=== PATIENT | male | born 1960 | race Asian ===

== ENCOUNTER 2017-10-30 07:17 | Outpatient (CLI) | payer BC ==
--- NOTE | 2017-10-30 09:09 | ULT ---
ULTRASOUND ABDOMEN COMPLETE HISTORY: Right upper quadrant pain. TECHNIQUE: Dejesus-scale ultrasound evaluation of the liver, gallbladder, spleen, pancreas, common bile duct, kidne ys, abdominal aorta, and inferior vena cava (IVC). FINDINGS: Within the hepatic parenchyma, there is a complex focus of predominantly decreased echogenicity with a component of peripherally located irregular increased echogenicity. There is through transmission of sound. No significant, internal flow is demonstrated. The finding measures slightly greater than 2 cm in diameter, as demonstrated. There is no acute gallbladder pathology. No hydronephrosis of the kidneys. Portions of the pancreas are obscured from view limiting assessment. No acute splenic pathology. No ascites or additional s ignificant intraabdominal pathology. IMPRESSION: Findings suggestive of a complex hepatic cyst. Followup pre- and post-contrast CT of abdomen utilizi ng hemangioma protocol is recommended to further characterize. CODE T POS: JOHN
== END 2017-10-30 07:18 | disposition home or self-care (01) ==
LOC: SCSULT 07:17
PROVIDERS: ATTEND Family Medicine
DX: R10.11 Right upper quadrant pain (principal)
CPT/HCPCS: 76700

== ENCOUNTER 2017-11-17 07:47 | Outpatient (CLI) | payer BC ==
[2017-11-17] MEDS ORDERED: Iopamidol 370 76% 100 ML VIAL ONE (09:00)
--- NOTE | 2017-11-17 10:23 | CT ---
CT ABDOMEN WITH AND WITHOUT IV CONTRAST HEMANGIOMA LIVER PROTOCOL: HISTORY: Liver mass. Abnormal sonogram. Right upper quadrant pain. COMPARISON: Sonogram from 10/30/17. FINDINGS: Lung bases are clear. Centrally within the anterior segment right liver lobe, a well-circumscribed c yst measuring up to 2.1 cm correlates with the sonographic abnormality. A tiny adjacent cyst abuts t his larger cyst. The larger cyst also slightly displaces adjacent hepatic veins. These factors like ly account for the complex appearance on sonogram. No solid enhancing masses or other complicating f actors are apparent on CT. Smaller cysts are present throughout the liver. No solid masses. Other visualized abdominal organs are unremarkable. No evidence of bowel obstruction. No free air o r free fluid. The pelvis was not imaged. Degenerative changes lumbar spine. IMPRESSION: Hepatic cysts as detailed above. No solid masses or otherwise aggressive lesions are apparent. POS: JOHN
== END 2017-11-17 07:48 | disposition home or self-care (01) ==
LOC: SCSCT 07:47
PROVIDERS: ATTEND Family Medicine
DX: R93.8 Abnormal findings on diagnostic imaging of other specified body structures (principal); K76.89 Other specified diseases of liver
CPT/HCPCS: 74170